=== PATIENT | male | born 1960 | race African-American/Black ===

== ENCOUNTER 2017-12-18 12:11 | Emergency (ER) | payer OTHER ==
[~2017-12-18] VITALS: Ht 180.3 cm; Wt 102.1 kg
[~2017-12-18 12:11] MED LIST: AMLODIPINE BESYL5 MG PO; ASPIRIN81 M2 PO; GLUCOPHAGE XR500 MG PO; IBUPROFEN 600600 M1 PO; LANTUS SUBQ; NORCO 5-325 TA1 EACH PO; PHENERGAN 25 MG25 M1 PO; QUINU5 PD PO; ULTRAM 50MG TAB50 MG PO
[2017-12-18] MEDS ORDERED: NORCO 5-325 TA1 EACH PO (13:02)
== END 2017-12-18 14:18 | disposition home or self-care (01) ==
LOC: ER 12:11
DX: M79.89 Other specified soft tissue disorders (principal); M54.5 Low back pain; R60.0 Localized edema; I10 Essential (primary) hypertension; E11.9 Type 2 diabetes mellitus without complications; F17.210 Nicotine dependence, cigarettes, uncomplicated